=== PATIENT | male | born 1975 | race Caucasian/White ===

== ENCOUNTER 2018-10-31 17:01 | Emergency (ER) | payer BC ==
[~2018-10-31] VITALS: Ht 182.9 cm; Wt 100.0 kg
[~2018-10-31 17:01] MED LIST: NO HOME MEDICATIONS
[2018-10-31 17:18] VITALS: BP 129/87; TEMP 97.8
[2018-10-31] MEDS ORDERED: NORCO 325 MG-51 TAB PO (19:16)
[2018-10-31 19:42] VITALS: PULSE 82
== END 2018-10-31 19:45 | disposition home or self-care (01) ==
LOC: COL.ER 17:01
DX: S52.92XA Unspecified fracture of left forearm, initial encounter for closed fracture (principal); F17.210 Nicotine dependence, cigarettes, uncomplicated; Z88.0 Allergy status to penicillin; W00.0XXA Fall on same level due to ice and snow, initial encounter; Y92.59 Other trade areas as the place of occurrence of the external cause